=== PATIENT | female | born 1990 | race Caucasian/White ===

== ENCOUNTER 2022-01-07 03:21 | Emergency (ER) | payer OTHER, SELFPAY ==
--- NOTE | ~2022-01-07 | CT_ITS ---
EXAMINATION: CT ABDOMEN AND PELVIS WITHOUT CONTRAST CLINICAL INFORMATION: Left flank pain COMPARISON: 05/11/2020 TECHNIQUE: Multidetector volumetric imaging was performed from the superior aspect of the liver through the pubic symphysis. Sagittal and coronal reformatted images were obtained on the technologist's workstation. This CT examination was performed using dose optimization techniques as appropriate, variously including the following: *Automated exposure control *Adjustment of mA and/or kV according to patient size (this includes techniques or standardized protocols for targeted exams where dose is matched to indication/reason for exam; i.e. extremities or head) *Use of iterative reconstruction technique DLP: 668 mGy-cm FINDINGS: LUNG BASES: The visualized lung bases are unremarkable. LIVER, GALLBLADDER, AND BILIARY TREE: The liver is normal in size, shape, and attenuation. No focal hepatic lesion or biliary ductal dilatation is present. Gallbladder unremarkable. PANCREAS: Unremarkable. SPLEEN: Unremarkable. ADRENAL GLANDS: Unremarkable. KIDNEYS AND URETERS: There is mild left hydroureter and pelvocaliectasis secondary to a 2 mm stone located within the LEFT ureterovesical junction. There are 3 punctate nonobstructive calculi in the right kidney a single punctate nonobstructive calculus in the left kidney. BLADDER: Unremarkable. GASTROINTESTINAL TRACT: No intestinal obstruction or inflammation. Normal appendix. ABDOMINAL WALL: No significant hernia is appreciated. LYMPH NODES: Normal. VASCULAR: Unremarkable. PELVIC VISCERA: Uterus and adnexa unremarkable. OSSEOUS STRUCTURES: No acute or suspicious osseous abnormalities. CT/CT abdomen pelvis wo con IMPRESSION: * There is a 2 mm calculus within the LEFT ureterovesical junction associated mild upstream hydroureter and pelvocaliectasis. * Bilateral nonobstructive punctate intrarenal calculi as described.
[2022-01-07 03:28] VITALS: BP 133/92; PULSE 104; RESP 20; TEMP 37.1; O2SAT 100; BMI 32.9
--- NOTE | 2022-01-07 03:45 | PC.NURSE ---
pt to room #18 with c/o abd pain mostly on left side. +nausea, Pt arrives alert, respirations easy, n/l. skin w/d. pt undressed into gown and awaiting MD's eval.
[2022-01-07 03:49] LABS: Appearance Urine CLOUDY; Color Urine YELLOW; Glucose Urine UA NEG (NEG); Leukocyte Esterase Urine 1+ (NEG); Nitrite Urine NEG (NEG); PH 5.5 (5.0-8.0); Specific Gravity - Urine >= 1.030 (1.005-1.025); UACC Culture Trigger YES; Urine Blood 3+ (NEG); Urine Ketones NEG (NEG); Urine Protein NEG (NEG-TRACE)
[2022-01-07 03:50] LABS: MANUAL DIFF FLAG NO
[2022-01-07 03:52] LABS: Basophils Percent Auto 0.5 % (0-2); Eosinophils Absolute Auto 0.2 X10*3/uL (0.0-0.4); Eosinophils Percent Auto 2.1 % (0-4); Hematocrit 39.7 % (37.0-47.0); Hemoglobin 13.1 g/dl (12.0-16.0); Imm Gran Abs Auto 0.02 X10*3/uL (0.00-0.03); Imm Gran Pct Auto 0.2 % (0.0-0.4); Lymphocytes Absolute Auto 3.3 X10*3/uL (1.2-4.9); Lymphocytes Percent Auto 38.1 % (20-40); Mean Corpuscular Hemoglobin 29.4 pg (27.0-33.0); Mean Corpuscular Volume 89.2 fL (80.0-98.0); Mean Platelet Volume 10.1 fL (9.4-12.3); Monocytes Absolute Auto 0.9 X10*3/uL (0.1-1.2); Monocytes Percent Auto 10.1 % (2-11); Neutrophils Absolute Auto 4.2 x10*3/uL (2.0-8.3); Platelet Count 283 X10*3/uL (160-400); Red Blood Count 4.45 X10*6/uL (4.20-5.50); Red Cell Distribution Width 13.3 % (11.0-16.0); White Blood Count 8.6 X10*3/uL (4.8-10.8)
[2022-01-07 03:54] LABS: Mucus Urine 1+ /LPF; Squamous Epithelial Cell Urine 3+ /LPF
[2022-01-07 03:55] LABS: Bacteria Urine 1+ /LPF; WBC Urine 0-2 /HPF (0-4)
--- NOTE | 2022-01-07 04:00 | PC.NURSE ---
pt medicated as per emar for pain and nausea. will continue to monitor pt.
--- NOTE | 2022-01-07 04:00 | ED.GENADULT ---
HPI - General Adult General Chief complaint: Abdominal Pain Stated complaint: sharp pain in left side Time Seen by Provider: 01/07/22 03:55 Source: patient Mode of arrival: ambulatory Limitations: no limitations History of Present Illness HPI narrative: Patient comes to the emergency room complaining of left flank pain radiating towards the groin area on the left. Patient states this started approximately 30 minutes ago, patient complaining of nausea vomiting. Patient has history of kidney stones, states it feels similar. Patient denies dysuria or hematuria Related Data Previous Rx's Medication Instructions Recorded ketorolac 10 mg tablet 10 mg PO TID PRN 5 Days #10 tab 01/07/22 levofloxacin 500 mg tablet 500 mg PO DAILY #6 tab 01/07/22 ondansetron HCl 4 mg tablet 4 mg PO Q6H PRN #10 tab 01/07/22 prednisone 20 mg tablet 20 mg PO DAILY #3 tab 01/07/22 tamsulosin 0.4 mg capsule (Flomax) 0.4 mg PO DAILY #10 cap 01/07/22 Allergies Allergy/AdvReac Type Severity Reaction Status Date / Time No Known Allergies Allergy Verified 01/07/22 03:27 [No Known Allergies*] Review of Systems Review of Systems: Constitutional : No Weight loss, No Fever, No Chills, No Night Sweats, No Fatigue, No Malaise ENT/Mouth : No Hearing loss, No Ear Pain, No Nasal Congestion, No Sinus Pain, No Hoarseness, No sore throat, No Rhinorrhea, No Swallowing Difficulty Eyes: No Eye Pain, No Swelling, No Redness, No Foreign Body, No Discharge, No Vision Changes Cardiovascular : No Chest Pain, No SOB, No Dyspnea on Exertion, No Orthopnea, No Edema, No Palpitations Respiratory : No Cough, No Sputum, No Wheezing, No Smoke Exposure, No Dyspnea Gastrointestinal : No Nausea, No Vomiting, No Diarrhea, No Constipation, No abdominal Pain, No Hematochezia, No Melena Genitourinary : no irregular bleeding, No Dysuria, No Urinary Frequency, No Hematuria, No Urinary Incontinence, No Urgency, complaining of left Flank Pain, No Urinary Flow Changes, No Hesitancy Musculoskeletal : No joint pain, No Myalgias, No Joint Swelling Skin : No Skin Lesions, No rash Neuro : No Weakness, No Numbness, No Paresthesias, No Loss of Consciousness, No Dizziness, No Headache Psych : No Anxiety/Panic, No Depression, No SI/HI/AH/VH, No Social Issues, Heme/Lymph: No Bruising, No Bleeding,No Lymphadenopathy Endocrine : No Polyuria, No Polydipsia, No Temperature Intolerance [facility] Past Medical History Medical History Kidney stones Social History Social History Advance Directives: No Patient : No Physical Exam ED Vital Signs: Vital Signs - 24 hr 01/07/22 03:28 01/07/22 05:24 Temperature 98.8 F Pulse Rate 104 H Respiratory Rate 20 16 Blood Pressure 133/92 H Pulse Oximetry 100 BMI result Body Mass Index 32.9 Const Other: Appearance: Alert. Oriented X3. Seems uncomfortable, unable to lay down due to pain Eyes: Pupils equal, round and reactive to light. ENT: Pharynx normal. Neck: Normal inspection. Neck supple. No lymph nodes noted. No crepitus CVS: Normal heart rate and rhythm. Pulses normal. Normal S1 and S2 Respiratory: No respiratory distress. Breath sounds normal. No Wheezing. No rales Abdomen: Soft and nontender, no tenderness in left lower quadrant either. No rigidity. No distention. Back: CVA tenderness left flank Skin: Skin warm and dry. Normal skin color. Normal skin turgor. Extremities: No lower extremity edema. No Lacerations. No Rash Neuro: Oriented X 3. No motor deficit. No sensory deficit. Moving all extermities. No slurred speech. Course Course Course Narrative: Patient is getting IV fluids, Zofran, ketorolac IV. CT scan pending urinalysis shows mild UTI, patient also getting IV Levaquin I discussed with the patient that she has a 2 mm stone at the left ureterovesicular junction. Patient instructed to follow-up with Urology Medical Decision Making Lab Data Result diagrams: 01/07/22 03:44 01/07/22 03:44 Labs: Lab Results 01/07/22 01/07/22 01/07/22 Range/Units 03:44 03:44 03:44 WBC 8.6 (4.8-10.8) X10*3/uL RBC 4.45 (4.20-5.50) X10*6/uL Hgb 13.1 (12.0-16.0) g/dl Hct 39.7 (37.0-47.0) % MCV 89.2 (80.0-98.0) fL MCH 29.4 (27.0-33.0) pg MCHC 33.0 (31.0-35.0) g/dl RDW 13.3 (11.0-16.0) % Plt Count 283 (160-400) X10*3/uL MPV 10.1 (9.4-12.3) fL Immature Gran % (Auto) 0.2 (0.0-0.4) % Neut % (Auto) 49.0 (45-73) % Lymph % (Auto) 38.1 (20-40) % [place] % (Auto) 10.1 (2-11) % Eos % (Auto) 2.1 (0-4) % Baso % (Auto) 0.5 (0-2) % Lymph # (Auto) 3.3 (1.2-4.9) X10*3/uL [place] # (Auto) 0.9 (0.1-1.2) X10*3/uL Eos # (Auto) 0.2 (0.0-0.4) X10*3/uL Baso # (Auto) 0.0 (0.0-0.2) X10*3/uL Abs Immat Gran (auto) 0.02 (0.00-0.03) X10*3/uL Absolute Neuts (auto) 4.2 (2.0-8.3) x10*3/uL Absolute Nucleated RBC 0.000 (0.0-0.012) X10*3/uL Nucleated RBC % (auto) 0.0 (0.0-0.2) /100WBC Sodium 137 (135-145) mmol/L Potassium 3.8 (3.3-5.1) mmol/L Chloride 105 (96-108) mmol/L Carbon Dioxide 23 (22-29) mmol/L Anion Gap 13 (12-20) BUN 12 (9-16) mg/dL Creatinine 0.93 (0.5-1.4) mg/dL Estim Creat Clear Calc 88.3 Estimated GFR > 60 Random Glucose 139 H (60-115) mg/dL Calcium 9.5 (8.4-10.2) mg/dL Total Bilirubin 0.6 (0.0-1.0) mg/dL AST 17 (5-31) U/L ALT 23 (0-31) U/L Alkaline Phosphatase 72 (39-117) U/L Total Protein 7.4 (6.5-8.0) g/dL Albumin 4.3 (3.5-5.0) g/dL Beta HCG, Quant < 2 mIU/mL Urine Color YELLOW Urine Appearance CLOUDY Urine pH 5.5 (5.0-8.0) Ur Specific [place] >= 1.030 H (1.005-1.025) Urine Protein NEG (NEG-TRACE) MG/DL Urine Glucose (UA) NEG (NEG) MG/DL Urine Ketones NEG (NEG) MG/DL Urine Blood 3+ H (NEG) Urine Nitrite NEG (NEG) Ur Leukocyte Esterase 1+ H (NEG) Urine RBC 10-14 H (0) /HPF Urine WBC 0-2 (0-4) /HPF Ur Squamous Epith Cells 3+ /LPF Urine Bacteria 1+ /LPF Urine Mucus 1+ /LPF Discharge Plan Discharge Clinical Impression: UTI (urinary tract infection), Ureterolithiasis Patient Disposition: Home, Self-Care Instructions: Kidney Stones (ED) Additional Instructions: Please follow-up with your primary care physician tomorrow. If you have any worsening or new symptoms, please return to the emergency room or call 911 Prescriptions: New tamsulosin [Flomax] 0.4 mg capsule 0.4 mg PO DAILY Qty: 10 0RF ketorolac 10 mg tablet 10 mg PO TID PRN (Reason: pain) 5 Days Qty: 10 0RF Rx Instructions: Alternate with Tylenol, do not use with ibuprofen/Motrin ondansetron HCl 4 mg tablet 4 mg PO Q6H PRN (Reason: nausea and vomiting) Qty: 10 0RF levofloxacin 500 mg tablet 500 mg PO DAILY Qty: 6 0RF prednisone 20 mg tablet 20 mg PO DAILY Qty: 3 0RF
[2022-01-07] MEDS: Ketorolac Tromethamine 30 MG/ML VIAL IVPUSH (04:05)
[2022-01-07] MEDS: levoFLOXacin/D5W 500 MG/100 ML PIGGYBACK 100 MG IV (04:06)
[2022-01-07] MEDS: ondansetron HCL 4 MG/2 ML VIAL IVPUSH (04:06)
[2022-01-07 04:10] LABS: Alanine Aminotransferase 23 U/L (0-31); Albumin Level 4.3 g/dL (3.5-5.0); Alkaline Phosphatase 72 U/L (39-117); Anion Gap 13 (12-20); Aspartate Amino Transferase 17 U/L (5-31); Bilirubin Total 0.6 mg/dL (0.0-1.0); Blood Urea Nitrogen 12 mg/dL (9-16); Calcium 9.5 mg/dL (8.4-10.2); Carbon Dioxide 23 mmol/L (22-29); Chloride 105 mmol/L (96-108); Creatinine Clr Calc Pharmacy 88.3; Estimated Glomerular Filt Rate > 60; Glucose Random 139 mg/dL (60-115); Potassium 3.8 mmol/L (3.3-5.1); Sodium 137 mmol/L (135-145); Total Protein 7.4 g/dL (6.5-8.0)
[2022-01-07 04:34] LABS: HCG Quantitative < 2 mIU/mL
--- NOTE | 2022-01-07 04:46 | PC.NURSE ---
pt to ct in stretcher.
--- NOTE | 2022-01-07 05:02 | PC.NURSE ---
pt returns from ct. pt states my pain is better rating pain 3/10.
[2022-01-07 05:24] VITALS: RESP 16
[2022-01-07] MEDS: Morphine Sulfate 4 MG/ML CARTRIDGE IVPUSH (05:24)
[2022-01-07 06:00] VITALS: BP 131/76; PULSE 65; RESP 16; TEMP 37.3; O2SAT 98
[2022-01-07] MEDS: Morphine Sulfate 2 MG/ML CARTRIDGE IVPUSH (06:15)
== END 2022-01-07 06:23 | disposition home or self-care (01) ==
PROVIDERS: Emergency Provider Emergency Medicine
DX: N39.0 Urinary tract infection, site not specified (principal); N13.2 Hydronephrosis with renal and ureteral calculous obstruction; Z87.442 Personal history of urinary calculi
CPT/HCPCS: 36415; 74176; 80053; 81001; 84702; 85025; 87086; 96365; 96375; 96376; 99284; J1885; J1956; J2270; J2405

== ENCOUNTER 2022-06-18 08:31 | Emergency (ER) | payer OTHER, SELFPAY ==
--- NOTE | ~2022-06-18 | CT_ITS ---
EXAMINATION: CT ABDOMEN AND PELVIS WITHOUT CONTRAST CLINICAL INFORMATION: Left lower quadrant pain with hematuria COMPARISON: January 07, 2022 TECHNIQUE: Multidetector volumetric imaging was performed from the superior aspect of the liver through the pubic symphysis. Sagittal and coronal reformatted images were obtained on the technologist's workstation. This CT examination was performed using dose optimization techniques as appropriate, variously including the following: *Automated exposure control *Adjustment of mA and/or kV according to patient size (this includes techniques or standardized protocols for targeted exams where dose is matched to indication/reason for exam; i.e. extremities or head) *Use of iterative reconstruction technique DLP: 640 mGy-cm FINDINGS: LUNG BASES: The visualized lung bases are unremarkable. No pleural or pericardial effusion. LIVER, GALLBLADDER, AND BILIARY TREE: The liver is normal in size, shape, and attenuation. No focal hepatic lesion or biliary ductal dilatation is present. The gallbladder is unremarkable with no evidence of radiopaque gallstones, gallbladder wall thickening, or obvious pericholecystic inflammatory changes. PANCREAS: Unremarkable. SPLEEN: Unremarkable. ADRENAL GLANDS: Unremarkable. KIDNEYS AND URETERS: Right kidney: There is a 5 mm nonobstructing lower pole calculus. There is a 2 mm nonobstructing lower pole calculus. There is a 3 mm nonobstructing lower pole calculus. There is a 4 mm nonobstructing lower to mid pole calculus. No hydronephrosis. No suspicious masses identified. No significant perinephric stranding. Right ureter appears unremarkable. Left kidney: There is again noted to be a 2 mm faint radiopaque density in the region of the left ureterovesical junction and whether this is actually within the wall or free within the urinary bladder is difficult to tell. There are numerous phleboliths about the pelvis with the left ureter not being dilated. No hydronephrosis. No suspicious masses identified. There is a 2 mm nonobstructing lower pole calculus. There is a 4 mm inferior to mid pole nonobstructing calculus. BLADDER: Unremarkable. GASTROINTESTINAL TRACT: There are no dilated loops of large or small bowel. No free air or free fluid is identified. No pericolonic inflammatory change. Appendix appears unremarkable. ABDOMINAL WALL: No significant hernia is appreciated. LYMPH NODES: No lymphadenopathy appreciated. VASCULAR: Unremarkable. PELVIC VISCERA: Unremarkable. OSSEOUS STRUCTURES: Unremarkable. CT/CT abdomen pelvis wo con IMPRESSION: 1 mm nonobstructing left ureterovesical junction calculus. Bilateral nephrolithiasis without hydronephrosis. Fleischner guidelines were followed.
[2022-06-18 09:15] VITALS: BP 118/73; PULSE 60; RESP 16; TEMP 37.3; O2SAT 98; BMI 34.7
[2022-06-18 09:43] LABS: Appearance Urine CLEAR; Color Urine YELLOW; Glucose Urine UA NEG (NEG); Leukocyte Esterase Urine NEG (NEG); Nitrite Urine NEG (NEG); PH 6.5 (5.0-8.0); UACC Culture Trigger NO; Urine Blood 1+ (NEG); Urine Ketones NEG (NEG); Urine Protein NEG (NEG-TRACE)
[2022-06-18 09:52] LABS: UPreg QC Valid YES; Urine Pregnancy NEGATIVE (NEGATIVE)
--- NOTE | 2022-06-18 09:56 | ED_ITS ---
HPI - Abdominal Pain General Chief Complaint: Abdominal Pain Stated Complaint: FLANK PAIN Time Seen by Provider: 06/18/22 09:41 Source: patient Mode of arrival: ambulatory Limitations: no limitations History of Present Illness HPI narrative: 32-year-old female with pmh of kidney stones and ectopic presents to ED for left lower quadrant abdominal pain in also brownish blood when she wipes after urination. Patient states symptoms started yesterday. Patient denies any nausea, vomiting, flank pain, fever, or chills. Patient is sexually active with her fiance and denies any history of STDs. MD elicited complaint: abdominal pain Related Data Previous Rx's Medication Instructions Recorded ketorolac 10 mg tablet 10 mg PO TID PRN pain 5 days #10 01/07/22 tabs levofloxacin 500 mg tablet 500 mg PO DAILY #6 tabs 01/07/22 ondansetron HCl 4 mg tablet 4 mg PO Q6H PRN nausea and 01/07/22 vomiting #10 tabs prednisone 20 mg tablet 20 mg PO DAILY #3 tabs 01/07/22 tamsulosin 0.4 mg capsule (Flomax) 0.4 mg PO DAILY #10 caps 01/07/22 naproxen 500 mg tablet 500 mg PO BID PRN pain 10 days #20 06/18/22 tabs oxycodone 5 mg capsule 5 mg PO TID PRN pain 3 days #9 caps 06/18/22 tamsulosin 0.4 mg capsule (Flomax) 0.4 mg PO DAILY 7 days #7 caps 06/18/22 Allergies Allergy/AdvReac Type Severity Reaction Status Date / Time No Known Allergies Allergy Verified 01/07/22 03:27 [No Known Allergies*] Review of Systems Review of Systems Left lower quadrant abdominal pain and brown discharge/blood after wiping urination. Yes all other systems are reviewed and are negative PMFSH Past Medical History Medical History Kidney stones Social History Social History Alcohol intake: never Patient Tobacco Use Status: Never used Tobacco Use of substances other than those prescribed or required for medical reasons: No Advance Directives: No Advance Directives Information Provided: No Physical Exam ED Vital Signs: Vital Signs - 24 hr 06/18/22 09:15 06/18/22 12:03 Temperature 99.1 F 98.2 F Pulse Rate 60 54 Respiratory Rate 16 16 Blood Pressure 118/73 106/61 Pulse Oximetry 98 97 Oxygen Delivery Method Room Air Room Air BMI result Body Mass Index 34.7 Const General: cooperative, healthy appearing, comfortable, no acute distress, well developed, alert, awake and Physically active; No acute distress Orientation/consciousness: patient oriented x3 [facility] Head: Yes normal to inspection, Yes No palpable skull fracture present, Yes normocephalic, Yes atraumatic and No abrasion Eyes General: appearance normal, both eyes and all related structures Neck Neck: Yes normal visual inspection, Yes full ROM, Yes no lymphadenopathy, Yes no meningeal signs, Yes trachea midline, Yes supple, No anterior neck swelling and No tender Chest Chest palpation & inspection: normal inspection of the chest and normal palpation of entire chest wall Resp Effort & Inspection: normal respiratory effort and able to speak in complete sentences Auscultation: clear to auscultation bilaterally Cardio Jugular venous distension: no JVD Heart sounds: S1 normal heart sound present and S2 normal heart sound present GI Inspection: Yes normal to inspection and No abdominal wall ecchymosis Palpation (GI): Soft to palpation, not firm, Tenderness to palpation present (GI) (mild) in the LLQ, no guarding and not rigid General: No CVA tenderness and Yes no CVA tenderness Back/Spine/Pelvis Back: no CVA tenderness, No CVA tenderness and No back tenderness Skin General skin exam: no rashes or lesions noted and elasticity normal Neuro General: patient oriented x3, gait normal, no meningeal signs and CN's II-XI intact bilaterally Cranial nerves: Yes CN's II-XII intact bilaterally Extrem General: Yes normal to inspection and Yes full ROM Psych Appearance: grossly normal, well kempt and not disheveled Course Course Course Narrative: UA ordered. negative will do labs and sent for abdominal CT scan due to history of kidney stone patient states seen some brown blood after urinating. Reevaluation(s) Reevaluation #1: Labs are normal. Kidney function normal. Urine shows so blood cels SO Abdomen/Pelvisl CT scan was ordered. CT scan shows multiple kidney stones and 1 mm UVJ stone. Negative for any nephro hydro no cyst. UA negative for infection. Patient will be discharged with pain medication and Flomax. Patient informed to follow-up with urology Time: 12:45 Reevaluation #2: Patient does not want pelvic exam. Patient clarifies more hematuria. Patient will follow-up with primary care provider. Patient does not suspect STI. Patient informed to follow up with PCP/[facility] [employer]. Time: 17:36 MDM - Abdominal Pain MDM Narrative Medical decision making narrative: Kidney stone Lab Data Result diagrams: 06/18/22 10:33 06/18/22 10:37 Labs: Lab Results 06/18/22 06/18/22 06/18/22 Range/Units 09:33 09:33 10:33 WBC 7.2 (4.8-10.8) X10*3/uL RBC 4.22 (4.20-5.50) X10*6/uL Hgb 12.6 (12.0-16.0) g/dl Hct 37.6 (37.0-47.0) % MCV 89.1 (80.0-98.0) fL MCH 29.9 (27.0-33.0) pg MCHC 33.5 (31.0-35.0) g/dl RDW 13.5 (11.0-16.0) % Plt Count 270 (160-400) X10*3/uL MPV 9.7 (9.4-12.3) fL Immature Gran % (Auto) 0.1 (0.0-0.4) % Neut % (Auto) 66.1 (45-73) % Lymph % (Auto) 22.6 (20-40) % [place] % (Auto) 8.4 (2-11) % Eos % (Auto) 2.4 (0-4) % Baso % (Auto) 0.4 (0-2) % Lymph # (Auto) 1.6 (1.2-4.9) X10*3/uL [place] # (Auto) 0.6 (0.1-1.2) X10*3/uL Eos # (Auto) 0.2 (0.0-0.4) X10*3/uL Baso # (Auto) 0.0 (0.0-0.2) X10*3/uL Abs Immat Gran (auto) 0.01 (0.00-0.03) X10*3/uL Absolute Neuts (auto) 4.8 (2.0-8.3) x10*3/uL Absolute Nucleated RBC 0.000 (0.0-0.012) X10*3/uL Nucleated RBC % (auto) 0.0 (0.0-0.2) /100WBC PT (10.0-13.1) SEC INR (0.9-1.1) APTT (26.0-36.4) SEC Sodium (135-145) mmol/L Potassium (3.3-5.1) mmol/L Chloride (96-108) mmol/L Carbon Dioxide (22-29) mmol/L Anion Gap (12-20) BUN (9-16) mg/dL Creatinine (0.5-1.4) mg/dL Estim Creat Clear Calc Estimated GFR Random Glucose (60-115) mg/dL Calcium (8.4-10.2) mg/dL Total Bilirubin (0.0-1.0) mg/dL AST (5-31) U/L ALT (0-31) U/L Alkaline Phosphatase (39-117) U/L Total Protein (6.5-8.0) g/dL Albumin (3.5-5.0) g/dL Beta HCG, Quant mIU/mL Urine Color YELLOW Urine Appearance CLEAR Urine pH 6.5 (5.0-8.0) Ur Specific [place] 1.010 (1.005-1.025) Urine Protein NEG (NEG-TRACE) MG/DL Urine Glucose (UA) NEG (NEG) MG/DL Urine Ketones NEG (NEG) MG/DL Urine Blood 1+ H (NEG) Urine Nitrite NEG (NEG) Ur Leukocyte Esterase NEG (NEG) Urine RBC 1-4 (0) /HPF Urine WBC 0 (0-4) /HPF Ur Squamous Epith Cells 1+ /LPF Urine Bacteria NONE /LPF Urine Test NEGATIVE (NEGATIVE) 06/18/22 06/18/22 Range/Units 10:37 10:37 WBC (4.8-10.8) X10*3/uL RBC (4.20-5.50) X10*6/uL Hgb (12.0-16.0) g/dl Hct (37.0-47.0) % MCV (80.0-98.0) fL MCH (27.0-33.0) pg MCHC (31.0-35.0) g/dl RDW (11.0-16.0) % Plt Count (160-400) X10*3/uL MPV (9.4-12.3) fL Immature Gran % (Auto) (0.0-0.4) % Neut % (Auto) (45-73) % Lymph % (Auto) (20-40) % [place] % (Auto) (2-11) % Eos % (Auto) (0-4) % Baso % (Auto) (0-2) % Lymph # (Auto) (1.2-4.9) X10*3/uL [place] # (Auto) (0.1-1.2) X10*3/uL Eos # (Auto) (0.0-0.4) X10*3/uL Baso # (Auto) (0.0-0.2) X10*3/uL Abs Immat Gran (auto) (0.00-0.03) X10*3/uL Absolute Neuts (auto) (2.0-8.3) x10*3/uL Absolute Nucleated RBC (0.0-0.012) X10*3/uL Nucleated RBC % (auto) (0.0-0.2) /100WBC PT 12.0 (10.0-13.1) SEC INR 1.0 (0.9-1.1) APTT 30.0 (26.0-36.4) SEC Sodium 138 (135-145) mmol/L Potassium 3.8 (3.3-5.1) mmol/L Chloride 108 (96-108) mmol/L Carbon Dioxide 24 (22-29) mmol/L Anion Gap 10 L (12-20) BUN 10 (9-16) mg/dL Creatinine 0.83 (0.5-1.4) mg/dL Estim Creat Clear Calc 100.9 Estimated GFR > 60 Random Glucose 113 (60-115) mg/dL Calcium 9.3 (8.4-10.2) mg/dL Total Bilirubin 0.4 (0.0-1.0) mg/dL AST 17 (5-31) U/L ALT 16 (0-31) U/L Alkaline Phosphatase 75 (39-117) U/L Total Protein 7.1 (6.5-8.0) g/dL Albumin 4.3 (3.5-5.0) g/dL Beta HCG, Quant < 2 mIU/mL Urine Color Urine Appearance Urine pH (5.0-8.0) Ur Specific [place] (1.005-1.025) Urine Protein (NEG-TRACE) MG/DL Urine Glucose (UA) (NEG) MG/DL Urine Ketones (NEG) MG/DL Urine Blood (NEG) Urine Nitrite (NEG) Ur Leukocyte Esterase (NEG) Urine RBC (0) /HPF Urine WBC (0-4) /HPF Ur Squamous Epith Cells /LPF Urine Bacteria /LPF Urine Test (NEGATIVE) Discharge Plan Discharge Clinical Impression: Calculus of kidney, Calculus, ureteral Patient Disposition: Home, Self-Care Instructions: Kidney Stones (ED), Ureteral Stones (ED) Additional Instructions: CT scan showed kidney and ureteral stones. He will be discharged with pain medication and Flomax. Please follow-up with urologist. Return to ED immediately for worsening abdominal pain, nausea, vomiting, gross hematuria, flank pain, fever, chills, or any other concerning symptoms. Prescriptions: New naproxen 500 mg tablet 500 mg PO BID PRN (Reason: pain) 10 Days Qty: 20 0RF tamsulosin [Flomax] 0.4 mg capsule 0.4 mg PO DAILY 7 Days Qty: 7 0RF oxycodone 5 mg capsule 5 mg PO TID PRN (Reason: pain) 3 Days Qty: 9 0RF Rx Instructions: Partial Fill upon patient request. Side effect of drowsiness. Do not take at work or while driving. Do not take with alcohol. No Action tamsulosin [Flomax] 0.4 mg capsule 0.4 mg PO DAILY Qty: 10 0RF ketorolac 10 mg tablet 10 mg PO TID PRN (Reason: pain) 5 Days Qty: 10 0RF Rx Instructions: Alternate with Tylenol, do not use with ibuprofen/Motrin ondansetron HCl 4 mg tablet 4 mg PO Q6H PRN (Reason: nausea and vomiting) Qty: 10 0RF levofloxacin 500 mg tablet 500 mg PO DAILY Qty: 6 0RF prednisone 20 mg tablet 20 mg PO DAILY Qty: 3 0RF Referrals: Joo Gabriel MD [Physician] - (Uretal stone in left UVJ) Stand Alone Forms: Work/School Release Interventions: ED Discharge Assessment Last Done: 06/18/22 13:03 Discharge Date/Time: 06/18/22 13:04 Print Language: Wolof
[2022-06-18 10:03] LABS: WBC Urine 0 /HPF (0-4)
[2022-06-18 10:04] LABS: Squamous Epithelial Cell Urine 1+ /LPF
[2022-06-18 10:40] LABS: MANUAL DIFF FLAG NO
[2022-06-18 10:43] LABS: Basophils Percent Auto 0.4 % (0-2); Eosinophils Absolute Auto 0.2 X10*3/uL (0.0-0.4); Eosinophils Percent Auto 2.4 % (0-4); Hematocrit 37.6 % (37.0-47.0); Hemoglobin 12.6 g/dl (12.0-16.0); Imm Gran Abs Auto 0.01 X10*3/uL (0.00-0.03); Imm Gran Pct Auto 0.1 % (0.0-0.4); Lymphocytes Absolute Auto 1.6 X10*3/uL (1.2-4.9); Lymphocytes Percent Auto 22.6 % (20-40); Mean Corpuscular HGB Conc 33.5 g/dl (31.0-35.0); Mean Corpuscular Hemoglobin 29.9 pg (27.0-33.0); Mean Corpuscular Volume 89.1 fL (80.0-98.0); Mean Platelet Volume 9.7 fL (9.4-12.3); Monocytes Absolute Auto 0.6 X10*3/uL (0.1-1.2); Monocytes Percent Auto 8.4 % (2-11); Neutrophils Absolute Auto 4.8 x10*3/uL (2.0-8.3); Neutrophils Percent Auto 66.1 % (45-73); Platelet Count 270 X10*3/uL (160-400); Red Blood Count 4.22 X10*6/uL (4.20-5.50); Red Cell Distribution Width 13.5 % (11.0-16.0); White Blood Count 7.2 X10*3/uL (4.8-10.8)
[2022-06-18 10:58] LABS: Alanine Aminotransferase 16 U/L (0-31); Albumin Level 4.3 g/dL (3.5-5.0); Alkaline Phosphatase 75 U/L (39-117); Anion Gap 10 (12-20); Aspartate Amino Transferase 17 U/L (5-31); Bilirubin Total 0.4 mg/dL (0.0-1.0); Blood Urea Nitrogen 10 mg/dL (9-16); Calcium 9.3 mg/dL (8.4-10.2); Carbon Dioxide 24 mmol/L (22-29); Chloride 108 mmol/L (96-108); Creatinine Clr Calc Pharmacy 100.9; Estimated Glomerular Filt Rate > 60; Glucose Random 113 mg/dL (60-115); Potassium 3.8 mmol/L (3.3-5.1); Sodium 138 mmol/L (135-145); Total Protein 7.1 g/dL (6.5-8.0)
[2022-06-18 11:05] LABS: HCG Quantitative < 2 mIU/mL
[2022-06-18 12:03] VITALS: BP 106/61; PULSE 54; RESP 16; TEMP 36.8; O2SAT 97
== END 2022-06-18 13:04 | disposition home or self-care (01) ==
PROVIDERS: Physician Assistant; Emergency Provider Student in an Organized Health Care Education/Training Program
DX: N20.0 Calculus of kidney (principal); N20.1 Calculus of ureter; R10.32 Left lower quadrant pain; Z79.899 Other long term (current) drug therapy
CPT/HCPCS: 36415; 74176; 80053; 81001; 81025; 84702; 85025; 85610; 85730; 99284

== ENCOUNTER 2024-04-10 10:50 | Emergency (ER) | payer OTHER, SELFPAY ==
--- NOTE | ~2024-04-10 | US_ITS ---
EXAMINATION: US OBSTETRICAL ULTRASOUND CLINICAL INFORMATION: Severe left lower quadrant pain with history of ectopic COMPARISON: None available. LMP: 03/12/2024. Gestational age by maternal dates is 4 weeks 1 day. Estimated date of delivery by maternal dates is 12/17/2024. TECHNIQUE: Both transabdominal and endovaginal scanning was performed. FINDINGS: Uterus appears normal. Endometrium measures 1.4 cm in thickness. No fluid is seen in the endometrial cavity. No gestational sac is seen. The right ovary measures 2.4 x 1.6 x 1.7 cm and appears unremarkable. The left ovary measures 2.5 x 1.9 (8 cm and contains a 1.5 cm corpus luteal cyst. Mildly prominent veins are seen in the left adnexa. There is no significant adnexal mass. No maternal pelvic ascites. US/US OB pelvic and transvaginal IMPRESSION: No intrauterine is identified at this time. Correlation with beta hCG levels is recommended, as nonvisualization of a gestational sac could be due to an early stage of . Alternatively, lack of an intrauterine gestational sac may also be seen with missed or ectopic , although no adnexal mass is seen to strongly suggest ectopic . Short-term sonographic follow-up and serial beta hCG levels are recommended to assess for development of an intrauterine gestational sac.
[2024-04-10 11:06] VITALS: BP 136/71; PULSE 69; RESP 18; TEMP 36.8; O2SAT 99; BMI 36.6
--- NOTE | 2024-04-10 11:07 | ED_ITS ---
HPI - General Adult General Chief complaint: OB Stated complaint: Ectopic ? Time Seen by Provider: 04/10/24 14:17 Source: patient Mode of arrival: ambulatory Limitations: no limitations History of Present Illness ED Provider: ALECIA CLIFFORD narrative: 33 yo female no sig PMH other than prior ectopic a few years ago managed with methotrexate here - she is G2 prior was ectopic. Her LMP was 4/21 and had some L sided cramping for a few days took test at home which was positive and panicked given prior history. Has remote hx of stones. Has no vaginal bleeding, n/v, fevers, STI concerns. eating and drinking. Pain is not severe. MD complaint: cramping Onset (ago): day(s) (few) Location: abdomen Radiation: non-radiation Severity: mild Quality: aching Pain Consistency: intermittent Exacerbating factors: none Associated symptoms: denies other symptoms Treatments prior to arrival: none Related Data Previous Rx's ?Medication ?Instructions ?Recorded ketorolac 10 mg tablet 10 mg PO TID PRN pain 5 days #10 01/07/22 tabs levofloxacin 500 mg tablet 500 mg PO DAILY #6 tabs 01/07/22 ondansetron HCl 4 mg tablet 4 mg PO Q6H PRN nausea and 01/07/22 vomiting #10 tabs prednisone 20 mg tablet 20 mg PO DAILY #3 tabs 01/07/22 tamsulosin 0.4 mg capsule (Flomax) 0.4 mg PO DAILY #10 caps 01/07/22 naproxen 500 mg tablet 500 mg PO BID PRN pain 10 days #20 06/18/22 tabs oxycodone 5 mg capsule 5 mg PO TID PRN pain 3 days #9 caps 06/18/22 tamsulosin 0.4 mg capsule (Flomax) 0.4 mg PO DAILY 7 days #7 caps 06/18/22 Allergies Allergy/AdvReac Type Severity Reaction Status Date / Time No Known Allergies Allergy Verified 04/10/24 11:10 [No Known Allergies*] Review of Systems 2 Review of Systems: Constitutional : No Weight loss, No Fever, No Chills ENT/Mouth : No sore throat, No Rhinorrhea Eyes: No Swelling, No Redness Cardiovascular : No Chest Pain, No SOB, No Edema Respiratory : No Cough, No Sputum, No Wheezing Gastrointestinal : no Nausea, no Vomiting, no Diarrhea, positive abdominal Pain, No Hematochezia, No Melena Genitourinary : No Dysuria, No Urinary Frequency, No Hematuria, No Urgency Musculoskeletal : No joint pain, No Myalgias, No Joint Swelling Skin : No Skin Lesions, No rash Neuro : No Weakness, No Numbness, No Dizziness, No Headache Psych : No Anxiety/Panic, No Depression All other systems reviewed and are negative. [facility] Past Medical History Attestation statement: The following information was validated with the patient. Source: old records reviewed Medical History Ectopic Kidney stones Social History Social History Alcohol intake: never Patient Tobacco Use Status: Never used Tobacco Advance Directives: No Advance Directives Information Provided: Yes Physical Exam ED Vital Signs: Vital Signs - 24 hr 04/10/24 11:06 Temperature 98.2 F Pulse Rate 69 Respiratory Rate 18 Blood Pressure 136/71 Pulse Oximetry 99 Oxygen Delivery Method Room Air BMI result Body Mass Index 36.6 Appearance: Alert. Oriented X3. No acute distress. drinking water Eyes: Pupils equal, round and reactive to light. ENT: Pharynx normal. Neck: Normal inspection. Neck supple. CVS: Normal heart rate and rhythm. Pulses normal. Respiratory: No respiratory distress. Breath sounds normal. Abdomen: Soft and nontender. Skin: Skin warm and dry. Normal skin color. Normal skin turgor. Extremities: No lower extremity edema. No calf ttp Neuro: Oriented X 3. No motor deficit. No sensory deficit. Course Course Course Narrative: This is an RME: Additional HPI, ROS, PE not included below will be deferred to primary provider. RME assessment and note performed by: Luzmaria Villegas PA-C This is a [id number]-female, with no known medical problems, , presenting to the ER with complaints of left lower abdominal pain for the last several days, worsening last night. Pt states she has a hx of ectopic in the past and symptoms feel similar. +HCG home test at home today. LMP around 4. Reporting pain as a 3/10. No fevers, reporting sweats. She is well appearing, under no acute distress. VSS. No abnormal vaginal discharge or bleeding. Plan: Labs, UA, further ER evaluation needed. Reevaluation(s) Reevaluation #1: very early no acute findings on labs and US UA negative stable for DC Medical Decision Making Medical Decision Making [facility] Narrative: 33 yo female here with cramping abdominal pain and prior ectopic her quant is only 180 she is not in pain has absolutely benign abdominal exam and is not toxic appearing - will obtain US and UA. It is very early on and has no bleeding reported at all. She is very reliable plan to repeat quant in 72 hours and return for repeat hormone level pending US exam. Differential Diagnosis Differential Diagnoses: The differential diagnosis associated with the presentation includes , benign abdominal doubt renal colic, no signs of peritoneal symptoms to suggest ruptured ovarian cyst or ectopic Admission/Observation Consideration of admission/observation: Escalation of care including admission/observation considered work up reassuring Lab Data [facility] Lab Attestation statement: I reviewed the patient's lab results. 04/10/24 11:24 04/10/24 11:24 Labs: Lab Results 04/10/24 04/10/24 Range/Units 11:24 14:25 WBC 6.5 (4.8-10.8) X10*3/uL RBC 4.25 (4.20-5.50) X10*6/uL Hgb 13.0 (12.0-16.0) g/dl Hct 38.5 (37.0-47.0) % MCV 90.6 (80.0-98.0) fL MCH 30.6 (27.0-33.0) pg MCHC 33.8 (31.0-35.0) g/dl RDW 13.8 (11.0-16.0) % Plt Count 278 (160-400) X10*3/uL MPV 9.7 (9.4-12.3) fL Immature Gran % (Auto) 0.2 (0.0-0.4) % Neut % (Auto) 60.0 (45-73) % Lymph % (Auto) 26.9 (20-40) % [place] % (Auto) 9.5 (2-11) % Eos % (Auto) 2.5 (0-4) % Baso % (Auto) 0.9 (0-2) % Lymph # (Auto) 1.8 (1.2-4.9) X10*3/uL [place] # (Auto) 0.6 (0.1-1.2) X10*3/uL Eos # (Auto) 0.2 (0.0-0.4) X10*3/uL Baso # (Auto) 0.1 (0.0-0.2) X10*3/uL Abs Immat Gran (auto) 0.01 (0.00-0.03) X10*3/uL Absolute Neuts (auto) 3.9 (2.0-8.3) x10*3/uL Absolute Nucleated RBC 0.000 (0.0-0.012) X10*3/uL Nucleated RBC % (auto) 0.0 (0.0-0.2) /100WBC Sodium 139 (135-145) mmol/L Potassium 3.9 (3.3-5.1) mmol/L Chloride 107 (96-108) mmol/L Carbon Dioxide 25 (22-29) mmol/L Anion Gap 11 L (12-20) BUN 8 L (9-16) mg/dL Creatinine 0.80 (0.5-1.4) mg/dL Estim Creat Clear Calc 106.8 Estimated GFR > 60 Random Glucose 128 H (60-115) mg/dL Calcium 9.3 (8.4-10.2) mg/dL Total Bilirubin 0.5 (0.0-1.0) mg/dL Direct Bilirubin 0.2 (0.0-0.5) mg/dL AST 18 (5-31) U/L ALT 14 (0-31) U/L Alkaline Phosphatase 74 (39-117) U/L Total Protein 7.5 (6.5-8.0) g/dL Albumin 4.3 (3.5-5.0) g/dL Beta HCG, Quant 180 mIU/mL Urine Color Yellow Urine Appearance Clear Urine pH 7.0 (5.0-9.0) Ur Specific [place] 1.010 (1.005-1.025) Urine Protein Negative (Neg-Trace) mg/dL Urine Glucose (UA) Negative (Negative) mg/dL Urine Ketones Negative (Negative) mg/dL Urine Blood Negative (Negative) Urine Nitrite Negative (Negative) Ur Leukocyte Esterase Negative (Negative) Blood Type O Positive Independent Interpretation I performed an independent interpretation of an: Ultrasound (no gestational sac but no adnexal mass) Radiology Impression Discussion of test interpretation with radiology: I have reviewed the radiologist's reading. External Record Review External record reviewed: Inpatient record Discharge Plan Discharge Clinical Impression: Early stage of Abdominal pain Qualifiers: Abdominal location: lower abdomen, unspecified Qualified Code(s): R10.30 - Lower abdominal pain, unspecified Patient Disposition: Home, Self-Care Instructions: Abdominal Pain in (ED) Additional Instructions: return for worsening pain, bleeding, fainting or any other concerns repeat hormone test here in 72 hours please get established with OBGYN blood type is O POS [address] [address] Ultrasound Report Signed Patient: Chioma Johnston MR#: [id number] : 1990 Acct:[id number] Age/Sex: 33 / F ADM Date: 04/10/24 Loc: .ED Attending Dr: Ordering Physician: Rosi Eason DO Date of Service: 04/10/24 Procedure(s): US OB pelvic and transvaginal Accession Number(s): [id number] cc: Rosi Eason DO; Physician,None ~ EXAMINATION: US OBSTETRICAL ULTRASOUND CLINICAL INFORMATION: Severe left lower quadrant pain with history of ectopic COMPARISON: None available. LMP: 03/12/2024. Gestational age by maternal dates is 4 weeks 1 day. Estimated date of delivery by maternal dates is 12/17/2024. TECHNIQUE: Both transabdominal and endovaginal scanning was performed. FINDINGS: Uterus appears normal. Endometrium measures 1.4 cm in thickness. No fluid is seen in the endometrial cavity. No gestational sac is seen. The right ovary measures 2.4 x 1.6 x 1.7 cm and appears unremarkable. The left ovary measures 2.5 x 1.9 (8 cm and contains a 1.5 cm corpus luteal cyst. Mildly prominent veins are seen in the left adnexa. There is no significant adnexal mass. No maternal pelvic ascites. US/US OB pelvic and transvaginal IMPRESSION: No intrauterine is identified at this time. Correlation with beta hCG levels is recommended, as nonvisualization of a gestational sac could be due to an early stage of . Alternatively, lack of an intrauterine gestational sac may also be seen with missed or ectopic , although no adnexal mass is seen to strongly suggest ectopic . Short-term sonographic follow-up and serial beta hCG levels are recommended to assess for development of an intrauterine gestational sac. Prescriptions: No Action tamsulosin [Flomax] 0.4 mg capsule 0.4 mg PO DAILY Qty: 10 0RF ketorolac 10 mg tablet 10 mg PO TID PRN (Reason: pain) 5 Days Qty: 10 0RF Rx Instructions: Alternate with Tylenol, do not use with ibuprofen/Motrin ondansetron HCl 4 mg tablet 4 mg PO Q6H PRN (Reason: nausea and vomiting) Qty: 10 0RF levofloxacin 500 mg tablet 500 mg PO DAILY Qty: 6 0RF prednisone 20 mg tablet 20 mg PO DAILY Qty: 3 0RF naproxen 500 mg tablet 500 mg PO BID PRN (Reason: pain) 10 Days Qty: 20 0RF tamsulosin [Flomax] 0.4 mg capsule 0.4 mg PO DAILY 7 Days Qty: 7 0RF oxycodone 5 mg capsule 5 mg PO TID PRN (Reason: pain) 3 Days Qty: 9 0RF Rx Instructions: Partial Fill upon patient request. Side effect of drowsiness. Do not take at work or while driving. Do not take with alcohol. Referrals: Duc Walls MD [Physician] - Print Language: [place]
[2024-04-10 11:28] LABS: MANUAL DIFF FLAG NO
[2024-04-10 11:30] LABS: Basophils Absolute Auto 0.1 X10*3/uL (0.0-0.2); Basophils Percent Auto 0.9 % (0-2); Eosinophils Absolute Auto 0.2 X10*3/uL (0.0-0.4); Eosinophils Percent Auto 2.5 % (0-4); Hematocrit 38.5 % (37.0-47.0); Imm Gran Abs Auto 0.01 X10*3/uL (0.00-0.03); Imm Gran Pct Auto 0.2 % (0.0-0.4); Lymphocytes Absolute Auto 1.8 X10*3/uL (1.2-4.9); Lymphocytes Percent Auto 26.9 % (20-40); Mean Corpuscular HGB Conc 33.8 g/dl (31.0-35.0); Mean Corpuscular Hemoglobin 30.6 pg (27.0-33.0); Mean Corpuscular Volume 90.6 fL (80.0-98.0); Mean Platelet Volume 9.7 fL (9.4-12.3); Monocytes Absolute Auto 0.6 X10*3/uL (0.1-1.2); Monocytes Percent Auto 9.5 % (2-11); Neutrophils Absolute Auto 3.9 x10*3/uL (2.0-8.3); Platelet Count 278 X10*3/uL (160-400); Red Blood Count 4.25 X10*6/uL (4.20-5.50); Red Cell Distribution Width 13.8 % (11.0-16.0); White Blood Count 6.5 X10*3/uL (4.8-10.8)
[2024-04-10 11:52] LABS: Alanine Aminotransferase 14 U/L (0-31); Albumin Level 4.3 g/dL (3.5-5.0); Alkaline Phosphatase 74 U/L (39-117); Anion Gap 11 (12-20); Aspartate Amino Transferase 18 U/L (5-31); Bilirubin Direct 0.2 mg/dL (0.0-0.5); Bilirubin Total 0.5 mg/dL (0.0-1.0); Blood Urea Nitrogen 8 mg/dL (9-16); Calcium 9.3 mg/dL (8.4-10.2); Carbon Dioxide 25 mmol/L (22-29); Chloride 107 mmol/L (96-108); Creatinine Clr Calc Pharmacy 106.8; Estimated Glomerular Filt Rate > 60; Glucose Random 128 mg/dL (60-115); Potassium 3.9 mmol/L (3.3-5.1); Sodium 139 mmol/L (135-145); Total Protein 7.5 g/dL (6.5-8.0)
[2024-04-10 11:54] LABS: HCG Quantitative 180 mIU/mL
[2024-04-10 14:36] LABS: Appearance Urine Clear; Color Urine Yellow; Glucose Urine UA Negative (Negative); Leukocyte Esterase Urine Negative (Negative); Nitrite Urine Negative (Negative); Urine Blood Negative (Negative); Urine Ketones Negative (Negative); Urine Protein Negative (Neg-Trace)
[2024-04-10 15:04] VITALS: BP 136/71; PULSE 69; RESP 18; TEMP 36.8; O2SAT 99
--- NOTE | 2024-04-10 15:05 | PC.NURSE ---
PT WAS SEEN BY PHYSICIAN AND DISCHARGE FROM TRIAGE
== END 2024-04-10 15:06 | disposition home or self-care (01) ==
PROVIDERS: Emergency Provider Emergency Medicine
DX: O26.891 Other specified pregnancy related conditions, first trimester (principal); R10.32 Left lower quadrant pain; Z3A.01 Less than 8 weeks gestation of pregnancy
CPT/HCPCS: 36415; 76801; 76817; 80048; 80076; 81003; 84702; 85025; 86900; 86901; 99282; 99284

== ENCOUNTER 2024-04-26 10:38 | Outpatient (REF) | payer OTHER, SELFPAY ==
--- NOTE | ~2024-04-26 | US_ITS ---
EXAMINATION: US OBSTETRICAL ULTRASOUND CLINICAL INFORMATION: Evaluate viability of . COMPARISON: Pelvic ultrasound 04/10/2024. LMP: 03/12/2024. Gestational age by maternal dates is 6 weeks and 3 days. Estimated date of delivery by maternal dates is 12/17/2024. TECHNIQUE: Ultrasound of the maternal pelvis is performed using transabdominal and transvaginal transducers. Transvaginal imaging is performed due to inadequate visualization transabdominally. M-mode Doppler is also performed. FINDINGS: There is a single intrauterine gestational sac with visible yolk sac, embryo/fetus, and cardiac activity. There is no significant subchorionic hemorrhage or hematoma. HR: 114 beats per minute. CRL (crown rump length): 0.29 cm (6 weeks +/- 4 days). GAVIN (estimated date of delivery): 12/20/2024 +/- 4 days. MATERNAL ADNEXA: The right maternal ovary measures 1.4 x 1 x 1.2 cm. Simple appearing cyst measuring 0.9 x 0.7 x 1 cm, almost certainly benign and for which no imaging follow-up is recommended. The left maternal ovary measures 2.3 x 1.9 x 2 cm. Corpus luteal cyst measuring 1.4 cm, for which no imaging follow-up is recommended. There is no significant maternal adnexal mass. No maternal pelvic ascites. US/US OB pelvic and transvaginal IMPRESSION: 1. Single intrauterine gestation with ultrasound gestational age of 6 weeks +/- 4 days. 2. Estimated date of delivery is 12/20/2024 +/- 4 days. 3. No maternal adnexal mass or pelvic ascites.
== END 2024-04-26 10:39 | disposition home or self-care (01) ==
LOC: HO.US 10:38
PROVIDERS: Visit Provider Obstetrics & Gynecology
DX: Z87.59 Personal history of other complications of pregnancy, childbirth and the puerperium (principal)
CPT/HCPCS: 36415; 76801; 76817; 84702; 86850; 86900

== ENCOUNTER 2024-04-26 12:02 | Outpatient (AMB) | payer OTHER, SELFPAY ==
[2024-04-26 13:11] VITALS: BP 110/62; BMI 36.3
--- NOTE | 2024-04-26 13:11 | MHC.OFFVIS ---
Vital Signs 04/26/24 13:11 Height 5 ft 2 in Weight 198 lb 6.656 oz BMI 36.3 BP 110/62 Intake Visit Reasons: U/S results and labs [employer] Required: No Information Interpreted: non-clinical & clinical Accompanied by: Self / Same As Patient Allergies No Known Allergies [No Known Allergies*] Allergy (Verified 04/26/24 13:14) Is last menstrual period known: Yes Last menstrual period: 03/19/24 Patient : Yes HPI Comments Details: Presenting after a positive urine test with history of ectopic . LMP unknown. The patient had an episode of mild spotting this morning that resolved. HCG done today was 23,741, blood type O positive, ultrasound report still pending unofficial reading shows gestational sac intrauterine EDC 12/20/2024, positive heart rate 114 beats per minute, with the presence of a gestational sac yolk sac and pole. The patient has no complaints PFSH Medical History Ectopic Kidney stones Social History Household Members Other:: dad Alcohol intake: never Patient Tobacco Use Status: Never used Tobacco Patient : Yes Current occupational status: employed Current occupation: Therapist Sexually active: Yes Sexual orientation: Straight/Heterosexual Gender identity: Female Female Reproductive History Menstrual Date of last menstrual period: 03/19/24 control method: none Total pregnancies: 2 Ectopics: 1 Review of Systems Const All systems reviewed & are unremarkable except as noted in HPI and below Reports as per HPI and Reports no additional complaints GI Reports no additional complaints Reports no additional complaints Physical Exam Vital Signs: Last Vital Signs BP 110/62 04/26/24 13:11 BMI result Body Mass Index 36.3 Assessment & Plan Assessment & Plan (1) Early stage of : Code(s): Z34.90 - Encounter for supervision of normal , unspecified, unspecified trimester Category: Medical Plan: Discussed with the patient the results of hCG, blood type and ultrasound. SAB/ectopic warnings given to patient, she is to call or go to emergency room in case of cramping and or bleeding, vitamin 1 tablet p.o. q.d.. Instructions given the patient to schedule initial OB RN visit within a week. All questions answered, the patient verbalized understanding Medications: Discontinued ketorolac Alternate with Tylenol, do not use with ibuprofen/Motrin Discontinued Reason: Patient Completed Course 10 mg PO TID 5 days PRN 10 tabs 0RF pain tamsulosin (Flomax) Discontinued Reason: Patient no longer taking 0.4 mg PO DAILY 10 caps 0RF naproxen Discontinued Reason: Patient Completed Course 500 mg PO BID 10 days PRN 20 tabs 0RF pain tamsulosin (Flomax) Discontinued Reason: Patient no longer taking 0.4 mg PO DAILY 7 days 7 caps 0RF levofloxacin Discontinued Reason: Patient Completed Course 500 mg PO DAILY 6 tabs 0RF ondansetron HCl Discontinued Reason: Patient no longer taking 4 mg PO Q6H PRN 10 tabs 0RF nausea and vomiting prednisone Discontinued Reason: Patient Completed Course 20 mg PO DAILY 3 tabs 0RF Coding Level of Care Code Est Pt Level 3 (94065) Diagnoses Early stage of Z34.90
== END 2024-04-26 13:41 | disposition home or self-care (01) ==
LOC: HO.HWS 12:02
PROVIDERS: Visit Provider Obstetrics & Gynecology
DX: Z34.90 Encounter for supervision of normal pregnancy, unspecified, unspecified trimester (principal)
CPT/HCPCS: 99213

== ENCOUNTER → 2024-05-10 09:53 | Outpatient (BNVA) | payer OTHER, SELFPAY | PROVIDERS: Visit Provider Obstetrics & Gynecology ==

== ENCOUNTER 2025-03-14 10:00 | Outpatient (AMB) | payer OTHER, SELFPAY ==
[2025-03-14 10:32] VITALS: BP 118/70; PULSE 76; RESP 18; TEMP 37.2; O2SAT 97; BMI 34.7
--- NOTE | 2025-03-14 10:32 | MHC.PC.OV ---
Vital Signs 03/14/25 10:32 Height 5 ft 2 in Weight 190 lb BMI 34.7 BP 118/70 Blood Pressure Location Lt brachial Position Sitting Respiration 18 Pulse 76 Pulse Source Pulse Oximeter Temp 99.0 F Temp Source Oral Pulse Oximetry (%) 97 Oxygen Delivery Method Room Air Intake Visit Reasons: ELECTRICAL APPRENTICE/ANNUAL PE Intake Note: Pt is here today for New patient PE. Allergies No Known Allergies [No Known Allergies*] Allergy (Verified 03/14/25 10:35) Tobacco use date assessed: 03/14/25 Dental Screening Dental Screen Date: 03/14/25 Did you have a dental visit in the last 12 months?: Yes Did you have a dental problem in the last 6 months where you did not have access to dental care?: No Was dental information given to patient?: Patient has dentist HPI ELECTRICAL APPRENTICE/ANNUAL PE HPI Details Pt presents for ELECTRICAL APPRENTICE PE. Pt has 3 month old baby girl. Patient complains of skin cyst above her left ear getting irritated by glasses. [facility] Medical History (Updated 03/14/25 @ 15:24 by Kamryn Anderson MD) History of ectopic Ectopic Kidney stones Surgical History Hx of section Family History Father Diabetes Mother No problems noted. 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 1. Little interest or pleasure in doing things: not at all 2. Feeling down, depressed, or hopeless: not at all 3. Trouble falling or staying asleep, or sleeping too much: not at all 4. Feeling tired or having little energy: not at all 5. Poor appetite or overeating: not at all 6. Feeling bad about yourself - or that you are a failure or have let yourself or your family down: not at all 7. Trouble concentrating on things, such as reading the newspaper or watching television: not at all 8. Moving or speaking so slowly that other people could have noticed. Or the opposite - being so fidgety or restless that you have been moving around a lot more than usual: not at all 9. Thoughts that you would be better off or of hurting yourself in some way: not at all Total score: 0 Depression Screening Interpretation: Negative Depression Screening Done: Yes 98626 - PHQ-9 Billing: Yes Source: Developed by Drs. Donny Murguia, Melissa Lemus, Khalif Devi and colleagues, with an educational cristobal from [employer]. Thrive Questionnaire Date Thrive assessed: 03/14/25 I am a: Patient What is your living situation today?: I have a steady place to live Within the past 12 months, did the food you bought not last and you didn't have the money to get more?: Never true Within the past 12 months, did you worry whether your food would run out before you got money to buy more?: Never true Do you have trouble paying for medicines?: No Do you have trouble getting transportation to medical appointments?: No Do you have trouble paying your heating and electricity bill?: No Do you have trouble taking care of your child, family member or friend?: No Do you have trouble with day-to-day activities such as bathing, preparing meals, shopping, managing finances, etc.?: No Are you currently unemployed and looking for a job?: No Are you interested in more education?: No Please select the resources that you would like help with: None Currently or been in a relationship where the following occur: No concerns reported THRIVE Score: 0 AUDIT C Alcohol Use Questionnaire (AUDIT-C) 1. How often do you have a drink containing alcohol?: Never 3. How often do you have six or more drinks on one occasion?: Never Total Score: 0 EM-7 AMB Questionnaire EM-7 Date EM - 7 assessed: 03/14/25 Feeling nervous, anxious, or on edge: 0 = Not at all Not being able to stop or control worryin = Not at all Worrying too much about different things: 0 = Not at all Trouble relaxin = Not at all Being so restless that it is hard to sit still: 0 = Not at all Becoming easily annoyed or irritable: 0 = Not at all Feeling afraid as if something awful might happen: 0 = Not at all Total EM-7 score (0-4 normal; 5-9 mild; 10-14 moderate; 15-21 severe): 0 Source: Developed by Drs. Donny Murguia, Melissa Lemus, Khalif Devi and colleagues, with an educational cristobal from [employer]. EM-7 Assessment Billing EM-7 Assessment Tool: EM-7 Assessment 70356 Review of Systems Const All systems reviewed & are unremarkable except as noted in HPI and below Reports no additional complaints Eyes Reports no additional complaints ENT Reports no additional complaints Card Reports no additional complaints Resp Reports no additional complaints GI Reports no additional complaints Reports no additional complaints Physical exam (Primary Care) Vital Signs: Last Vital Signs Temp 99.0 F 03/14/25 10:32 Pulse 76 03/14/25 10:32 Resp 18 03/14/25 10:32 BP 118/70 03/14/25 10:32 Pulse Ox 97 03/14/25 10:32 Oxygen Delivery Method Room Air 03/14/25 10:32 BMI result Body Mass Index 34.7 Tobacco/Smoking Status: Tobacco use Status Tobacco use date assessed 03/14/25 03/14/25 10:41 Patient Tobacco Use Status Never used Tobacco 03/14/25 11:08 e-Cigarette/Vaping Use Never Used 03/14/25 11:08 PHQ-9: PHQ-9 Score PHQ-9: Total score 0 03/14/25 11:10 Depression Screening Interpretation: Negative Thrive Assessment: Date of Thrive Assessment Date Thrive assessed 03/14/25 03/14/25 10:32 Currently or been in a relationship where the following occur: No concerns reported Const General: no acute distress HENMT Other: There is about 2 cm sebaceous cyst above left ear Head: Yes normal to inspection Ears: hearing grossly normal bilaterally Throat: Yes posterior oropharynx normal Eyes General: appearance normal, both eyes and all related structures Neck Neck: Yes no lymphadenopathy and Yes supple Resp Effort & Inspection: normal respiratory effort Auscultation: clear to auscultation bilaterally Cardio Rhythm: regular rhythm Heart sounds: S1 normal heart sound present and S2 normal heart sound present GI Inspection: Yes normal to inspection Palpation (GI): Soft to palpation Percussion: Yes normal to percussion Auscultation: normal bowel sounds Coding Level of Care Code Est Pt Prev Care 18-39y([id number]) Diagnoses Skin cyst L72.9 Annual physical exam Z00.00 Additional Codes EM-7 Assessment Billing - EM-7 Assessment Tool: EM-7 Assessment [id number] ([id number]) PHQ-9 - 37219 - PHQ-9 Billing: Yes ([id number]) Assessment & Plan Assessment & Plan (1) Skin cyst: Code(s): L72.9 - Follicular cyst of the skin and subcutaneous tissue, unspecified Category: Medical Plan: Referred to general surgeon (2) Annual physical exam: Code(s): Z00.00 - Encounter for general adult medical examination without abnormal findings Category: Medical Plan: Well-balanced diet regular physical activity discussed with the patient. She is established with supervisor [employer] for annual Pap. She is currently nursing and blood work will be postponed Orders: Referrals General Surgery Referral L72.9 - Follicular cyst of the skin and subcutaneous tissue, unspecified
--- OUTSIDE RECORDS SUMMARY | 2025-03-14 11:28 | XMS_ITS | Data Portability ---
Author Organization [facility] [address] Address [address] [place] [address] Assessment No assessment recorded. Plan of Treatment Reminders Order Date Submit Date Provider Last Modified By Organization Details Last Modified Time Details Appointments None recorded. Lab None recorded. Referral None recorded. Procedures None recorded. Surgeries None recorded. Imaging None recorded. Medication Orders amoxicillin 875 mg tablet 2022 023 [facility]/Pharmacy #[id number], [address] [place] [address], [address], 3 11:38:49 fluticasone propionate 50 mcg/actuati on nasal spray,suspe nsion 2022 023 [facility]/Pharmacy #2339, [address] [place], [address], 3 11:38:49 Patient TargetsNo targets recorded. Patient Instructions Encounter Date Encounter Id Patient Instructions Last Modified By Organization Details Last Modified Time 02/14/2023 [id number] ear infection (otitis media): care instructions [email or web address] Not available 02/14/2023 11:39:03 Reason for Referral None Reported. Problems No Known Problems Medical Equipment None Reported. Allergies No known drug allergies Medications Name Sig Start Date Stop Date Status Note LastModified by Organization Details LastModified Time amoxicillin 875 mg tablet Take 1 tablet every 12 hours by oral route before meals for 10 days. 2022 active Not Available Not Available Not Avai lable tamsulosin 0.4 mg capsule TAKE 1 CAPSULE BY MOUTH DAILY FOR 7 DAYS 02/14 completed Not Available Not Available Not Available oxycodone 5 mg capsule PLEASE SEE ATTACHED FOR DETAILED DIRECTION S 02/14 completed Not Available Not Available Not Available fluticasone propionate 50 mcg/actuati on nasal spray,suspe nsion [place] 1 spray every day by intranasa l route. 2022 active Not Available Not Available Not Avai lable naproxen 500 mg tablet TAKE 1 TAB (500 MG) ORALLY 2 TIMES A DAY NEEDED FOR PAIN FOR 10 DAYS 02/14 completed Not Available Not Available Not Available Claritin active Not Available Not Avai lable Not Available Vitals Date Recorded Body height Body mass index (BMI) Body weight Oxygen saturation Oxygen saturation in Arterial blood by Pulse oximetry Heart rate Respiratory rate Body temperature Systolic blood pressure Diastolic blood pressure Provider Name and Address Organization Details Last Updated DateTime 157.48 cm 32.9 kg/m2 80012.6 3 g 98 % 98 % 70 /min 16 /min 98.2 [degF] 129 mm[Hg] 79 mm[Hg] JEREMY SHANNON [employer] 10:53:30 Social History Question Answer Notes LastModified by [employer] Details LastModified Time Tobacco Smoking Status Never Smoker JEREMY GAYTANTEAU null, [place] - [facility] 02/14/2023 10:51:26 What Is Your Level Of Alcohol Consumption? None Information not available 02/14/2023 Are You Currently Employed? Yes Information not available 02/14/2023 Do You Use Any Illicit Or Recreational Drugs? No Information not available 02/14/2023 Have You Recently Traveled Abroad? No Information not available 02/14/2023 Do You Or Have You Ever Used Any Other Forms Of Tobacco Or Nicotine? No Information not available 02/14/2023 Sex: Unknown Functional Status None recorded. Mental Status None recorded. Family History Relationship Description Onset Age of this Age Resolved Age Notes LastModified by Organization Details LastModified Time Father No current problems or disability Not available 02/14 10:51:17 Mother No current problems or disability Not available 02/14 10:51:17 Medical History No medical history recorded. Gynecological History Statement/Question Response Date of LMP 01/16/2023 Obstetrics History GPAL:G 0 P 0 0 0 0 Immunizations Vaccine Type Date Status Note Provider Nam e and Address Organization Details Recorded Time COVID-19, mRNA, LNP-S, PF, 100 mcg/0.5mL dose or 50 mcg/0.25mL dose 01/21/2021 completed JEREMY SHANNON null, [place] - [facility] 02/14/2023 10:50:02 COVID-19, mRNA, LNP-S, PF, 100 mcg/0.5mL dose or 50 mcg/0.25mL dose 02/18/2021 completed JEREMY SHANNON null, [place] - [facility] 02/14/2023 10:50:02 COVID-19, mRNA, LNP-S, PF, 100 mcg/0.5mL dose or 50 mcg/0.25mL dose 11/18/2021 completed JEREMY SHANNON null, [place] - [facility] 02/14/2023 10:50:02 COVID-19, mRNA, LNP-S, bivalent, PF, 50 mcg/0.5 mL or 25mcg/0.25 mL dose 10/17/2022 completed JEREMY SHANNON null, [place] - [facility] 02/14/2023 10:50:02 Influenza, split virus, quadrivalent, PF 08/30/2019 completed JEREMY SHANNON null, [place] - [facility] 02/14/2023 10:50:02 Influenza, split virus, quadrivalent, PF 11/18/2021 completed JEREMY SHANNON null, [place] - [facility] 02/14/2023 10:50:02 Past Encounters Encounter ID Performer Location Encounter Start Date Encounter Closed Date Diagnosis/Indication Diagnosis SNOMED-CT Code Diagnosis ICD10 Code Diagnosis Note [id number] [address] [place] [address] 07/06/2018 19:45:22 07/06/2018 20:21:06 [id number] [address] [place] [address] 05/06/2019 17:40:53 05/06/2019 18:20:46 [id number] Collin Cunningham DO [address] [place] [address] 02/14/2023 09:46:45 02/14/2023 11:39:58 Acute right otitis media 480710459 H66.91 Given Hx and Sx and PE findings will Rx Antibiotic s and nasal spray Take antibiotic with food. Eat a yogurt daily or take a probiotic while taking the antibiotic . Recommend humidified airrest, fluidstyle nol/ibu prnNo swimming x 1 week Patient advised to follow up as needed for worsening symptoms or no improvemen t. Discussed concerning red flags with patient and reasons to follow up in the Emergency Department urgently. Health Concerns Section Related Observation LastModified by Organization Detai ls LastModified Time None Recorded Concern Status LastModified by Organization Details LastModified Time None Recorded Advance Directives Directive None Recorded Payers Encounter Date Sequence Insurance Name Policy Number Policy Soolrzano Covered Member ID Solorzano Member ID Guarantor Name 07/06/2018 1 [facility] [id number] Chioma Bains [id number] Chioma Bains 05/06/2019 1 [facility] [id number] Chioma Bains [id number] Chioma Bains 02/14/[address] [place] [address] [id number] Chioma Bains [id number] Chioma Bains Notes Date Note Type Note Provider Name and Address Organization Details Recorded Time 02/14/2023 text/html Ear Pain Brief HPIReported bypatient.Notes:32 yo femalec/o R ear pain x 3 dear feels blockedhearing muffled+ nasal congestion no ear traumano swimmingno QTip use No feverNo chillsNo coughNo difficulty breathing or respiratory distressNo CPNo sore throatNo Abdominal painNo nauseaNo vomitingNp diarrheaNo myalgiaNo fatigueNo rashNo HANo dizzinessNo recent travelNo known sick contacts Collin Cunningham, DO [address] [place], [address], [place] - [facility] 02/14/2023 11:39:31 OBGyn Episode No OBEpisode recorded.
== END 2025-03-14 11:16 | disposition home or self-care (01) ==
LOC: HO.HMCC 10:01
PROVIDERS: Visit Provider Internal Medicine
DX: L72.9 Follicular cyst of the skin and subcutaneous tissue, unspecified (principal); Z00.00 Encounter for general adult medical examination without abnormal findings

== ENCOUNTER → 2025-03-14 10:00 | Outpatient (BNVA) | payer OTHER, SELFPAY | PROVIDERS: Visit Provider Internal Medicine | DX: Z00.00 Encounter for general adult medical examination without abnormal findings (principal); L72.9 Follicular cyst of the skin and subcutaneous tissue, unspecified | CPT/HCPCS: 96127 ==

== ENCOUNTER 2025-03-29 15:01 | Outpatient (REF) | payer OTHER, SELFPAY | END 2025-03-29 15:02 | disposition home or self-care (01) | LOC: HO.LNP 15:01 | PROVIDERS: Visit Provider Surgery | DX: L72.12 Trichodermal cyst (principal) | CPT/HCPCS: 11422; 88304 ==

== ENCOUNTER 2025-03-29 15:01 | Outpatient (AMB) | payer OTHER, SELFPAY ==
--- NOTE | 2025-03-29 15:02 | MHC.OFFVIS ---
Vital Signs 03/29/25 15:09 Height 5 ft 2 in Weight 192 lb BMI 35.1 BP 121/69 Blood Pressure Location Rt brachial Position Sitting Pulse 63 Intake Visit Reasons: scalp cyst Intake Note: Patient referred by pcp Dr. Anderson for cyst on scalp. Present for 2yrs. Patient c/o: has had other scalp cysts removed. Bothersome with glasses. Men'S Leather Dress Belt Maker Required: No Accompanied by: Self / Same As Patient Allergies No Known Allergies [No Known Allergies*] Allergy (Verified 03/29/25 15:07) Medication List - Last Reconciled 03/29/25 by Yadiel Gauthier MD No Known Home Meds HPI HPI scalp cyst: Details: [age] year old female referred for a scalp cyst. She says she has had this lump on the temporal aspect of her scalp for about 5 years now. She says that this has been bothering her and wants this removed. She denies any drainage. [facility] Medical History (Updated 03/29/25 @ 15:32 by Yadiel Gauthier MD) Scalp cyst History of ectopic Ectopic Kidney stones Surgical History Hx of section Family History Father Diabetes Mother No problems noted. 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, works at school Housing: House Alcohol intake: never Patient Tobacco Use Status: Never used Tobacco e-Cigarette/Vaping Use: Never Used service: No Current occupational status: employed Current occupation: Therapist Sexual orientation: Straight/Heterosexual Gender identity: Female Cognitive needs: No Hearing needs: No Vision needs: Yes Female Reproductive History Menstrual Age of Menarche: 13 Review of Systems Const Denies chills and Denies fever(s) Card Denies chest pain, Denies dyspnea and Denies dyspnea on exertion Resp Denies cough, Denies dyspnea and Denies dyspnea on exertion GI Denies hematochezia and Denies change in bowel habits Denies hematuria Musc Denies back pain and Denies limited range of motion Neuro Denies focal weakness and Denies convulsions Psych Denies depression and Denies mood swings Physical Exam Const General: comfortable and no acute distress Orientation/consciousness: patient oriented x3 HEENT Other: Cystic mass on the left heel area of the scalp, well-defined, about 1 cm in diameter Neck Neck: Yes no lymphadenopathy Resp Auscultation: clear to auscultation bilaterally Cardio Rhythm: regular rhythm GI Palpation (GI): Soft to palpation, nontender and no guarding Neuro General: patient oriented x3 Office Procedures Excision Details: She was in reclining position. The area of the scalp cyst on the left temporal region was prepped and draped. Lidocaine 1% was used for local anesthesia. I made an incision on the skin overlying this cyst with a blade 15. This was carried down through the full-thickness of the skin and subcutaneous fat until the cyst capsule was visualized. I sharply dissected the cyst capsule off of the rest of the subcutaneous layer until this was delivered. This was about a 1.1 cm cyst. I closed the incision with full-thickness nylon 3-0 simple interrupted sutures. Bacitracin was applied. The procedure was completed. She tolerated procedure well. There were no immediate complications. [id number]-[id number] scalp/neck/hands/feet/genitalia 1.1cm-2cm Procedure code (CPT) selection complete Assessment & Plan Assessment & Plan (1) Scalp cyst: Code(s): L72.9 - Follicular cyst of the skin and subcutaneous tissue, unspecified Category: Medical Plan: Excision was done in the office. She tolerated procedure well. She was given wound care instructions. I will see her in the office in about 2 weeks for removal of sutures Coding Level of Care Code New Pt Level 3 (84082) Diagnoses Scalp cyst L72.9 CPT Codes Scalp/Neck/Hands/Feet/Genetalia - CPT: 91177-Njvkxajx scalp/neck/hands/feet/genitalia 1.1cm-2cm ([id number])
[2025-03-29 15:09] VITALS: BP 121/69; PULSE 63; BMI 35.1
--- OUTSIDE RECORDS SUMMARY | 2025-03-29 15:34 | XMS_ITS | Data Portability ---
Author Organization [facility] [address] Address [address] [place] [address] Assessment No assessment recorded. Plan of Treatment Reminders Order Date Submit Date Provider Last Modified By Organization Details Last Modified Time Details Appointments None recorded. Lab None recorded. Referral None recorded. Procedures None recorded. Surgeries None recorded. Imaging None recorded. Medication Orders amoxicillin 875 mg tablet 2022 023 [facility]/Pharmacy #[id number], [address] [place] [address], [address], 3 11:38:49 fluticasone propionate 50 mcg/actuati on nasal spray,suspe nsion 2022 023 [facility]/Pharmacy #2339, [address] [place], [address], 3 11:38:49 Patient TargetsNo targets recorded. Patient Instructions Encounter Date Encounter Id Patient Instructions Last Modified By Organization Details Last Modified Time 02/14/2023 [id number] ear infection (otitis media): care instructions [email or web address] [...] propionate 50 mcg/actuati on nasal spray,suspe nsion [place] 1 spray every day by intranasa l [...] Last Updated DateTime 157.48 cm 32.9 kg/m2 91060.6 3 g 98 % 98 % 70 /min 16 /min 98.2 [degF] 129 mm[Hg] 79 mm[Hg] JEREMY SHANNON [employer] 10:53:30 Social History Question Answer Notes LastModified by 20:20 Mobile ion Details LastModified Time Tobacco Smoking Status [...] SNOMED-CT Code Diagnosis ICD10 Code Diagnosis Note [id number] [facility] [facility] [address] [place] [address] 07/06/2018 19:45:22 07/06/2018 20:21:06 [id number] [address] [address] [place] [address] 05/06/2019 17:40:53 05/06/2019 18:20:46 [id number] Collin Cunningham DO [address] [place] [address] 02/14/2023 09:46:45 02/14/2023 11:39:58 Acute right otitis media 404437043 H66.91 Given Hx and Sx and PE [...] Recorded Advance Directives Directive None Recorded Payers Insurance Date Sequence Insurance Name Policy Number Policy Solorzano Covered Member ID Solorzano Member ID Guarantor Name 02/14/[address] [place] [address] [id number] Chioma Bains [id number] Chioma Bains Notes Date Note Type Note [...] dizzinessNo recent travelNo known sick contacts Collin Cunningham DO [address] [place], [address], [place] - [facility] 02/14/2023 11:39:31 OBGyn Episode No OBEpisode recorded.
== END 2025-03-29 15:35 | disposition home or self-care (01) ==
LOC: HO.HGS 15:02
PROVIDERS: Visit Provider Surgery
DX: L72.11 Pilar cyst (principal)
CPT/HCPCS: 11422; 99203

== ENCOUNTER 2025-04-12 11:22 | Outpatient (AMB) | payer OTHER, SELFPAY ==
--- NOTE | 2025-04-12 11:43 | MHC.OFFVIS ---
Intake Visit Reasons: s/p scalp cyst stitch removal Intake Note: Pt states, I'm here to get my sutures removed. c/o itching Servicing Manager Required: No Allergies No Known Allergies [No Known Allergies*] Allergy (Verified 04/12/25 11:44) Medication List - Last Reconciled 04/12/25 by Niraj Cruz RN No Known Home Meds HPI HPI s/p scalp cyst stitch removal: Details: Patient reports she is doing well has no complaints at this time. Denies any discharge, pain at the suture site. She endorses itching around the excision site. She denies fever/chills PFSH Medical History Scalp cyst History of ectopic Ectopic Kidney stones Surgical History Hx of section Family History Father Diabetes Mother No problems noted. 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, works at school Housing: House Alcohol intake: never Patient Tobacco Use Status: Never used Tobacco e-Cigarette/Vaping Use: Never Used service: No Current occupational status: employed Current occupation: Therapist Sexual orientation: Straight/Heterosexual Gender identity: Female Cognitive needs: No Hearing needs: No Vision needs: Yes Female Reproductive History Menstrual Age of Menarche: 13 Review of Systems Const All systems reviewed & are unremarkable except as noted in HPI and below Physical Exam Const General: healthy appearing, comfortable and no acute distress Orientation/consciousness: patient oriented x3 Resp Effort & Inspection: normal respiratory effort and able to speak in complete sentences Skin Other: Suture line just superior to the left ear appears intact, sutures present. no surrounding erythema no evidence of fluid collection. Nontender Neuro General: patient oriented x3 Assessment & Plan Assessment & Plan (1) Scalp cyst: Code(s): L72.9 - Follicular cyst of the skin and subcutaneous tissue, unspecified Category: Medical (2) Visit for suture removal: Code(s): Z48.02 - Encounter for removal of sutures Category: Medical Plan 34-year-old female s/p excision scalp cyst presents to the office for routine follow-up and suture removal. Cyst pathology as follows: Pilar cyst. Patient is doing well she has returned to baseline. Has no complaints. Denies fever chills. On evaluation the excision site appears well healed has some dry skin, likely the cause of her itching. No concern for infection at this time The sutures were removed in the office, patient tolerated this well. Patient can follow up as needed with any concerns or questions. Coding Level of Care Code Est Pt Level 2 (45452) Diagnoses Scalp cyst L72.9 Visit for suture removal Z48.02
--- OUTSIDE RECORDS SUMMARY | 2025-04-12 12:02 | XMS_ITS | Data Portability ---
Author Organization [facility] [address] Address [address] [place] [address] Assessment No assessment recorded. Plan of Treatment Reminders Order Date Submit Date Provider Last Modified By Organization Details Last Modified Time Details Appointments None recorded. Lab None recorded. Referral None recorded. Procedures None recorded. Surgeries None recorded. Imaging None recorded. Medication Orders amoxicillin 875 mg tablet 2022 023 [facility]/Pharmacy #2339, [address] [place] [address], [address], 3 11:38:49 fluticasone propionate 50 mcg/actuati on nasal spray,suspe nsion 2022 023 [facility]/Pharmacy #2339, [address] [place], [address], 3 11:38:49 Patient TargetsNo targets recorded. Patient Instructions Encounter Date Encounter Id Patient Instructions Last Modified By Organization Details Last Modified Time 02/14/2023 [id number] ear infection (otitis media): care instructions [email or web address] [...] propionate 50 mcg/actuati on nasal spray,suspe nsion [place] 1 spray every day by intranasa l [...] Last Updated DateTime 157.48 cm 32.9 kg/m2 54371.6 3 g 98 % 98 % 70 /min 16 /min 98.2 [degF] 129 mm[Hg] 79 mm[Hg] JEREMY SHANNON [employer] 10:53:30 Social History Question Answer Notes LastModified by [employer] Details LastModified Time Tobacco Smoking Status Never Smoker JEREMY SHANNON franklin, [employer] 02/14/2023 10:51:26 Have You Recently Traveled Abroad? No Information not available 02/14/2023 Sex: Unknown Functional Status Question Answer Note LastModified by [employer] Details LastModified Time Do you use any illicit or recreational drugs? No Information not available 02/14/2023 Do you or have you ever used any other forms of tobacco or nicotine? No Information not available 02/14/2023 What is your level of alcohol consumption? None Information not available 02/14/2023 Are you currently employed? Yes Information not available 02/14/2023 Mental Status None recorded. Family History Relationship [...] SNOMED-CT Code Diagnosis ICD10 Code Diagnosis Note [id number] [address] [facility] [address] [address] 07/06/2018 19:45:22 07/06/2018 20:21:06 [id number] [facility] [address] [facility] [address] [address] 05/06/2019 17:40:53 05/06/2019 18:20:46 [id number] Collin Cunningham DO [address] [place] [address] 02/14/2023 09:46:45 02/14/2023 11:39:58 Acute right otitis media [id number] H66.91 Given Hx and Sx and PE [...] ID Solorzano Member ID Guarantor Name 02/14/[address] [place] [address] [id number] Chioma Bains [id number] Chioma Bains Notes Date Note Type Note [...] Cunningham DO [address] [place], [address], [place] - [facility] 02/14/2023 11:39:31 OBGyn Episode No OBEpisode recorded.
== END 2025-04-12 11:54 | disposition home or self-care (01) ==
LOC: HO.HGS 11:23
DX: L72.9 Follicular cyst of the skin and subcutaneous tissue, unspecified (principal); Z48.02 Encounter for removal of sutures
CPT/HCPCS: 99212

== ENCOUNTER 2025-04-30 10:28 | Outpatient (AMB) | payer OTHER, SELFPAY ==
[2025-04-30 10:52] VITALS: BP 118/74; PULSE 85; RESP 18; TEMP 37.2; O2SAT 98; BMI 34.7
--- NOTE | 2025-04-30 10:52 | A.OFFPC_ITS ---
Vital Signs 04/30/25 10:52 Height 5 ft 2 in Weight 190 lb BMI 34.7 BP 118/74 Blood Pressure Location Rt brachial Position Sitting Respiration 18 Pulse 85 Pulse Source Pulse Oximeter Temp 99.0 F Temp Source Oral Pulse Oximetry (%) 98 Oxygen Delivery Method Room Air Intake Visit Reasons: Discuss depression Intake Note: Pt is here today for a sick visit. Pt c/o depression issues. Allergies No Known Allergies [No Known Allergies*] Allergy (Verified 04/30/25 11:04) Medication List - Last Reconciled 04/30/25 by Kamryn Anderson MD No Known Home Meds Tobacco use date assessed: 03/14/25 Dental Screening Dental Screen Date: 03/14/25 HPI Discuss depression HPI Details Pt presents c/o feeling depressed since her father in Dec. Patient has a 4-month-old baby that she has been nursing. She has been crying a lot but denies change in his sleeping pattern appetite or activity. Patient denies suicide or homicide ideation [facility] Medical History Scalp cyst History of ectopic Ectopic Kidney stones Surgical History Hx of section Family History Father Diabetes Mother No problems noted. 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 1. Little interest or pleasure in doing things: more than half the days 2. Feeling down, depressed, or hopeless: more than half the days 3. Trouble falling or staying asleep, or sleeping too much: more than half the days 4. Feeling tired or having little energy: more than half the days 5. Poor appetite or overeating: more than half the days 6. Feeling bad about yourself - or that you are a failure or have let yourself or your family down: several days 7. Trouble concentrating on things, such as reading the newspaper or watching television: several days 8. Moving or speaking so slowly that other people could have noticed. Or the opposite - being so fidgety or restless that you have been moving around a lot more than usual: not at all 9. Thoughts that you would be better off or of hurting yourself in some way: not at all Total score: 12 Depression Screening Interpretation: Positive (refer to counselor, patient declined medications 04/2025) Depression Screening Follow-up: Existing condition Depression Screening Done: Yes 57161 - PHQ-9 Billing: Yes Source: Developed by Drs. Donny Murguia, Melissa Lemus, Khalif Devi and colleagues, with an educational cristobal from [employer]. Thrive Questionnaire Date Thrive assessed: 03/14/25 I am a: Patient What is your living situation today?: I have a steady place to live Within the past 12 months, did the food you bought not last and you didn't have the money to get more?: Never true Within the past 12 months, did you worry whether your food would run out before you got money to buy more?: Never true Do you have trouble paying for medicines?: No Do you have trouble getting transportation to medical appointments?: No Do you have trouble paying your heating and electricity bill?: No Do you have trouble taking care of your child, family member or friend?: No Do you have trouble with day-to-day activities such as bathing, preparing meals, shopping, managing finances, etc.?: No Are you currently unemployed and looking for a job?: No Are you interested in more education?: No Please select the resources that you would like help with: None Currently or been in a relationship where the following occur: No concerns reported THRIVE Score: 0 AUDIT C Alcohol Use Questionnaire (AUDIT-C) 2. How many drinks containing alcohol do you have on a typical day when you are drinking?: 1 or 2 Total Score: 0 EM-7 AMB Questionnaire EM-7 Date EM - 7 assessed: 04/30/25 Feeling nervous, anxious, or on edge: 3 = Nearly every day Not being able to stop or control worryin = Nearly every day Worrying too much about different things: 2 = More than half the days Trouble relaxin = More than half the days Being so restless that it is hard to sit still: 2 = More than half the days Becoming easily annoyed or irritable: 1 = Several days Feeling afraid as if something awful might happen: 3 = Nearly every day Total EM-7 score (0-4 normal; 5-9 mild; 10-14 moderate; 15-21 severe): 16 Source: Developed by Drs. Donny Murguia, Melissa Lemus, Khalif Devi and colleagues, with an educational cristobal from [employer]. EM-7 Assessment Billing EM-7 Assessment Tool: EM-7 Assessment 57827 Review of Systems Const All systems reviewed & are unremarkable except as noted in HPI and below Eyes Reports no additional complaints ENT Reports no additional complaints Card Reports no additional complaints Resp Reports no additional complaints GI Reports no additional complaints Reports no additional complaints Physical exam (Primary Care) Vital Signs: Last Vital Signs Temp 99.0 F 04/30/25 10:52 Pulse 85 04/30/25 10:52 Resp 18 04/30/25 10:52 BP 118/74 04/30/25 10:52 Pulse Ox 98 04/30/25 10:52 Oxygen Delivery Method Room Air 04/30/25 10:52 BMI result Body Mass Index 34.7 Tobacco/Smoking Status: Tobacco use Status Tobacco use date assessed 03/14/25 04/30/25 10:52 Patient Tobacco Use Status Never used Tobacco 04/30/25 10:52 e-Cigarette/Vaping Use Never Used 04/30/25 10:52 PHQ-9: PHQ-9 Score PHQ-9: Total score 12 04/30/25 11:31 Depression Screening Interpretation: Positive (refer to counselor, patient declined medications 04/2025) Depression Screening Follow-up: Existing condition Thrive Assessment: Date of Thrive Assessment Date Thrive assessed 03/14/25 04/30/25 10:52 Currently or been in a relationship where the following occur: No concerns reported Const General: no acute distress HENMT Head: Yes normal to inspection Face and sinus: Yes normal facial exam Neck Neck: Yes no lymphadenopathy and Yes supple Resp Effort & Inspection: normal respiratory effort Auscultation: clear to auscultation bilaterally Cardio Rhythm: regular rhythm Heart sounds: S1 normal heart sound present and S2 normal heart sound present GI Inspection: Yes normal to inspection Palpation (GI): Soft to palpation Percussion: Yes normal to percussion Auscultation: normal bowel sounds Coding Level of Care Code Est Pt Level 3 (07667) Diagnoses Grief F43.21 Additional Codes EM-7 Assessment Billing - EM-7 Assessment Tool: EM-7 Assessment 72732 ([id number]) PHQ-9 - 97139 - PHQ-9 Billing: Yes ([id number]) Assessment & Plan Assessment & Plan (1) Grief: Code(s): F43.21 - Adjustment disorder with depressed mood Category: Medical Plan: Patient will get established with a counselor. She declined taking medications. Well-balanced diet increasing physical activity sleep hygiene discussed with the patient. Follow-up in 2 months or as needed
--- OUTSIDE RECORDS SUMMARY | 2025-04-30 11:43 | XMS_ITS | Data Portability ---
Author Organization [facility] [address] Address [address] [place] [address] Assessment No assessment recorded. Plan of Treatment Reminders Order Date Submit Date Provider Last Modified By Organization Details Last Modified Time Details Appointments None recorded. Lab None recorded. Referral None recorded. Procedures None recorded. Surgeries None recorded. Imaging None recorded. Medication Orders amoxicillin 875 mg tablet 2022 023 [facility][id number], [address] [place] [address], [address], 3 11:38:49 fluticasone propionate 50 mcg/actuati on nasal spray,suspe nsion 2022 023 [id number], [address] [place], [address], 3 11:38:49 Patient TargetsNo targets recorded. Patient Instructions Encounter Date Encounter Id Patient Instructions Last Modified By Organization Details Last Modified Time 02/14/2023 [id number] ear infection (otitis media): care instructions [email or web address] [...] propionate 50 mcg/actuati on nasal spray,suspe nsion [place] 1 spray every day by intranasa l [...] Last Updated DateTime 157.48 cm 32.9 kg/m2 03923.6 3 g 98 % 98 % 70 /min 16 /min 98.2 [degF] 129 mm[Hg] 79 mm[Hg] JEREMY SHANNON [employer] 10:53:30 Social History Question Answer Notes LastModified by [employer] Details LastModified Time Tobacco Smoking Status Never Smoker JEREMY SHANNON [place], [employer] 02/14/2023 10:51:26 Have You Recently Traveled Abroad? No Information not available 02/14/2023 Sex: Unknown Functional Status Question Answer Note LastModified by [employer] Details LastModified Time Do you use any [...] SNOMED-CT Code Diagnosis ICD10 Code Diagnosis Note [id number] [facility] [address] [address] 07/06/2018 19:45:22 07/06/2018 20:21:06 [id number] [facility] [address] [address] 05/06/2019 17:40:53 05/06/2019 18:20:46 [id number] Collin Cunningham DO [address] [address] [place] [address] 02/14/2023 09:46:45 02/14/2023 11:39:58 Acute right otitis media [id number] H66.91 Given Hx and Sx and PE [...] ID Solorzano Member ID Guarantor Name 02/14/[address] [place] [address] [id number] Chioma Bains [id number] Chioma Bains Notes Date Note Type Note [...] Cunningham DO [address] [place], [address], [place] - [facility] 02/14/2023 11:39:31 OBGyn Episode No OBEpisode recorded.
== END 2025-04-30 12:34 | disposition home or self-care (01) ==
LOC: HO.HMCC 10:28
PROVIDERS: PCP Internal Medicine; Visit Provider Internal Medicine
DX: F43.21 Adjustment disorder with depressed mood (principal)

== ENCOUNTER → 2025-04-30 10:28 | Outpatient (BNVA) | payer OTHER, SELFPAY | PROVIDERS: PCP Internal Medicine; Visit Provider Internal Medicine | DX: F43.21 Adjustment disorder with depressed mood (principal); Z13.31 Encounter for screening for depression; Z13.30 Encounter for screening examination for mental health and behavioral disorders, unspecified | CPT/HCPCS: 96127 ==